=== PATIENT | female | born 1985 | race Caucasian/White ===

== ENCOUNTER 2016-09-17 01:43 | Outpatient (CLI) | payer OTHER ==
[~2016-09-17] VITALS: Ht 165.1 cm; Wt 81.8 kg
[~2016-09-17 01:43] MED LIST: BCP TD; PERCOCET 5/321 UDTAB PO; valtrex
[2016-09-17 02:19] LABS: MEAN CELL VOLUME 91 fl (80.0-100.0); MEAN CORPUSCULAR HGB CONC 35 g/dl (33.0-37.0); PLATELET COUNT 220 K/mm3 (130-400); RED BLOOD COUNT 3.52 M/mm3 (4.10-5.30); WHITE BLOOD COUNT 17.6 K/mm3 (4.8-10.8)
[2016-09-17 02:20] LABS: ADD PATHOLOGY DIFF REVIEW NO; HEMOGLOBIN 11.2 g/dl (12.5-16.0); MEAN CORPUSCULAR HEMOGLOBIN 32 pg (27.0-31.0)
[2016-09-17 02:26] LABS: BAND 7 % (0-10); BASOPHIL 1 % (0-2); EOSINOPHIL 1 % (0-4); MYELOCYTE 2 % (0-0); NEUTROPHILS 77 % (42.0-75.2); PLATELET ESTIMATE NORMAL (NORMAL); TOTAL CELLS COUNTED 100
[2016-09-17 02:27] LABS: ADJUSTED CALCIUM 9.4 mg/dL (8.4-10.2); ALBUMIN 3.2 gm/dL (3.5-5.0); BILIRUBIN,TOTAL 0.5 mg/dL (0.0-1.0); CALCIUM 8.8 mg/dL (8.4-10.2); CREATININE, serum 0.52 mg/dL (0.52-1.25); POTASSIUM 3.4 mmol/L (3.4-5.0); TOTAL PROTEIN 6.4 gm/dL (6.4-8.2)
[2016-09-17 02:39] VITALS: BP 130/83; PULSE 108; TEMP 98.3
[2016-09-17] MEDS ORDERED: SYNTHROID0.05 MG/TA PO (02:49)
[2016-09-17] MEDS ORDERED: PRENATAL (02:50)
[2016-09-17 03:20] LABS: PH 6 (5-8); SQUAMOUS EPITHELIAL 0-2 /hpf; URINE APPEARANCE Hazy; URINE BACTERIA None Seen /hpf; URINE BILIRUBIN Negative (NEGATIVE); URINE BLOOD 1+ (NEGATIVE); URINE COLOR Yellow; URINE GLUCOSE Negative (NEGATIVE); URINE KETONE Negative (NEGATIVE); URINE RBC 20-50 /hpf; URINE UROBILINOGEN Negative (NEGATIVE)
[2016-09-17 03:30] VITALS: BP 124/81; PULSE 96; TEMP 98.2
== END 2016-09-17 04:05 ==
LOC: LDRO 01:43
PROVIDERS: Student in an Organized Health Care Education/Training Program
DX: O26.892 Other specified pregnancy related conditions, second trimester (principal); R10.84 Generalized abdominal pain; Z3A.21 21 weeks gestation of pregnancy; Z87.891 Personal history of nicotine dependence

== ENCOUNTER 2016-12-27 19:40 | Outpatient (CLI) | payer OTHER ==
[~2016-12-27] VITALS: Ht 165.1 cm; Wt 97.3 kg
[~2016-12-27 19:40] MED LIST changes: +PRENATAL; +SYNTHROID0.05 MG/TA PO
[2016-12-27 19:50] VITALS: BP 147/85; PULSE 91; TEMP 98.3
[2016-12-27 20:00] VITALS: BP 142/83; PULSE 96
[2016-12-27 20:38] VITALS: BP 138/83; PULSE 93
== END 2016-12-27 20:50 | disposition home or self-care (01) ==
LOC: LDRO 19:40
DX: O62.9 Abnormality of forces of labor, unspecified (principal); Z3A.36 36 weeks gestation of pregnancy

== ENCOUNTER 2017-01-02 17:03 | Outpatient (CLI) | payer OTHER ==
[~2017-01-02] VITALS: Ht 165.1 cm; Wt 98.2 kg
[2017-01-02 17:10] VITALS: BP 144/83; PULSE 111; TEMP 98.7
[2017-01-02 17:30] VITALS: BP 144/83; PULSE 111; TEMP 98.7
[2017-01-02 17:41] LABS: MEAN CELL VOLUME 90 fl (80.0-100.0); MEAN CORPUSCULAR HGB CONC 35 g/dl (33.0-37.0); MEAN PLATELET VOLUME 11.2 fl (7.4-10.4); PLATELET COUNT 165 K/mm3 (130-400); RED BLOOD COUNT 3.35 M/mm3 (4.10-5.30); REDCELL DISTRIBUTION WIDTH-CV 14.6 % (11.5-14.5)
[2017-01-02 17:47] LABS: ADD PATHOLOGY DIFF REVIEW NO; HEMATOCRIT 30.1 % (37.0-47.0); HEMOGLOBIN 10.5 g/dl (12.5-16.0); MEAN CORPUSCULAR HEMOGLOBIN 31 pg (27.0-31.0)
[2017-01-02 17:48] LABS: ALBUMIN 3.2 gm/dL (3.5-5.0); BILIRUBIN,TOTAL 0.5 mg/dL (0.0-1.0); CALCIUM 9.4 mg/dL (8.4-10.2); CREATININE, serum 0.47 mg/dL (0.52-1.25); POTASSIUM 3.2 mmol/L (3.4-5.0); TOTAL PROTEIN 6.2 gm/dL (6.4-8.2)
[2017-01-02 17:56] LABS: BAND 1 % (0-10); EOSINOPHIL 2 % (0-4); NEUTROPHILS 77 % (42.0-75.2); TOTAL CELLS COUNTED 100
[2017-01-02 17:57] LABS: ANISOCYTOSIS 1+; HYPOCHROMIA 1+; MICROCYTOSIS 1+; POLYCHROMASIA 1+
[2017-01-02 18:00] VITALS: BP 127/77; PULSE 106
== END 2017-01-02 18:27 | disposition home or self-care (01) ==
LOC: LDRO 17:03
PROVIDERS: Obstetrics & Gynecology
DX: O16.3 Unspecified maternal hypertension, third trimester (principal); R60.0 Localized edema; Z3A.37 37 weeks gestation of pregnancy; Z87.891 Personal history of nicotine dependence

== ENCOUNTER 2017-01-05 14:17 | Outpatient (CLI) | payer OTHER ==
[~2017-01-05] VITALS: Ht 165.1 cm; Wt 98.2 kg
[2017-01-05 14:18] VITALS: BP 139/80; PULSE 112; TEMP 98.3
[2017-01-05 14:20] VITALS: BP 144/86; PULSE 113
[2017-01-05] MEDS ORDERED: VALTREX 50500 MG/TAB PO (14:22)
[2017-01-05 14:35] VITALS: BP 133/80; PULSE 100
[2017-01-05 14:50] VITALS: BP 124/62; PULSE 89
[2017-01-05 15:00] VITALS: BP 125/63; PULSE 106
== END 2017-01-05 15:15 | disposition home or self-care (01) ==
LOC: LDRO 14:17
DX: O26.893 Other specified pregnancy related conditions, third trimester (principal); R03.0 Elevated blood-pressure reading, without diagnosis of hypertension; Z3A.37 37 weeks gestation of pregnancy

== ENCOUNTER 2017-01-09 18:08 | Outpatient (CLI) | payer OTHER ==
[~2017-01-09] VITALS: Ht 165.1 cm; Wt 97.7 kg
[~2017-01-09 18:08] MED LIST changes: +VALTREX 50500 MG/TAB PO
[2017-01-09 18:45] VITALS: BP 128/81; PULSE 98
[2017-01-09 18:54] VITALS: BP 136/84; PULSE 108; TEMP 98.4
[2017-01-09] MEDS ORDERED: LEVOXYL0.075 MG PO (19:09)
[2017-01-09 19:15] VITALS: BP 134/78; PULSE 97
[2017-01-09 19:15] LABS: MEAN CELL VOLUME 90 fl (80.0-100.0); MEAN CORPUSCULAR HGB CONC 34 g/dl (33.0-37.0); MEAN PLATELET VOLUME 11.2 fl (7.4-10.4); PLATELET COUNT 181 K/mm3 (130-400); RED BLOOD COUNT 3.44 M/mm3 (4.10-5.30); REDCELL DISTRIBUTION WIDTH-CV 14.9 % (11.5-14.5); WHITE BLOOD COUNT 14.7 K/mm3 (4.8-10.8)
[2017-01-09 19:17] LABS: HEMOGLOBIN 10.6 g/dl (12.5-16.0); MEAN CORPUSCULAR HEMOGLOBIN 31 pg (27.0-31.0)
[2017-01-09 19:18] LABS: ADD PATHOLOGY DIFF REVIEW NO
[2017-01-09 19:19] LABS: PH 6 (5-8); SQUAMOUS EPITHELIAL >50 /hpf; URINE APPEARANCE Cloudy; URINE BACTERIA Rare /hpf; URINE BILIRUBIN Negative (NEGATIVE); URINE BLOOD Negative (NEGATIVE); URINE COLOR Yellow; URINE GLUCOSE Negative (NEGATIVE); URINE KETONE Trace (NEGATIVE); URINE UROBILINOGEN Negative (NEGATIVE)
[2017-01-09 19:24] LABS: ADJUSTED CALCIUM 9.6 mg/dL (8.4-10.2); ALBUMIN 3.2 gm/dL (3.5-5.0); ANISOCYTOSIS 1+; BAND 1 % (0-10); BILIRUBIN,TOTAL 0.6 mg/dL (0.0-1.0); CREATININE, serum 0.54 mg/dL (0.52-1.25); EOSINOPHIL 1 % (0-4); METAMYELOCYTE 2 % (0-0); MICROCYTOSIS 2+; NEUTROPHILS 79 % (42.0-75.2); POLYCHROMASIA 1+; POTASSIUM 3.1 mmol/L (3.4-5.0); TOTAL CELLS COUNTED 100; TOTAL PROTEIN 6.1 gm/dL (6.4-8.2)
[2017-01-09 19:48] VITALS: BP 137/80; PULSE 109
== END 2017-01-09 20:00 | disposition home or self-care (01) ==
LOC: LDRO 18:08
PROVIDERS: Obstetrics & Gynecology
DX: Z34.83 Encounter for supervision of other normal pregnancy, third trimester (principal); Z3A.38 38 weeks gestation of pregnancy

== ENCOUNTER 2017-01-16 06:47 | Inpatient (IN) | payer OTHER ==
[~2017-01-16] VITALS: Ht 162.6 cm; Wt 98.2 kg
[2017-01-16] VITALS (48 sets, daily range): BP systolic 99–177; BP diastolic 54–102; PULSE 74–125; TEMP 97.7–98
[~2017-01-16 06:47] MED LIST changes: +LEVOXYL0.075 MG PO
[2017-01-16 07:49] LABS: ADJUSTED CALCIUM 10.8 mg/dL (8.4-10.2); ALBUMIN 3.2 gm/dL (3.5-5.0); BILIRUBIN,TOTAL 0.6 mg/dL (0.0-1.0); CALCIUM 10.2 mg/dL (8.4-10.2); CREATININE, serum 0.51 mg/dL (0.52-1.25); POTASSIUM 3.1 mmol/L (3.4-5.0); TOTAL PROTEIN 6.1 gm/dL (6.4-8.2)
[2017-01-16] MEDS ORDERED: CLARITIN 1010 MG/TAB PO (07:55)
[2017-01-16] MEDS ORDERED: BENADRYL25 M2 PO (07:56)
[2017-01-16 08:10] LABS: MEAN CELL VOLUME 90 fl (80.0-100.0); MEAN CORPUSCULAR HGB CONC 35 g/dl (33.0-37.0); MEAN PLATELET VOLUME 12.1 fl (7.4-10.4); PLATELET COUNT 148 K/mm3 (130-400); RED BLOOD COUNT 3.56 M/mm3 (4.10-5.30); REDCELL DISTRIBUTION WIDTH-CV 14.9 % (11.5-14.5); WHITE BLOOD COUNT 13.5 K/mm3 (4.8-10.8)
[2017-01-16 08:15] LABS: HEMATOCRIT 31.9 % (37.0-47.0); HEMOGLOBIN 11.1 g/dl (12.5-16.0); MEAN CORPUSCULAR HEMOGLOBIN 31 pg (27.0-31.0)
[2017-01-16 08:16] LABS: ADD PATHOLOGY DIFF REVIEW NO
[2017-01-16 09:23] LABS: BAND 8 % (0-10); NEUTROPHILS 75 % (42.0-75.2); TOTAL CELLS COUNTED 100
[2017-01-16 09:24] LABS: ANISOCYTOSIS 1+; HYPOCHROMIA 1+; PLATELET ESTIMATE NORMAL (NORMAL)
[2017-01-17 00:05] VITALS: BP 140/83; PULSE 80; TEMP 97.5
[2017-01-17 05:45] VITALS: BP 112/63; PULSE 78; TEMP 97.5
[2017-01-17 07:28] LABS: MEAN CELL VOLUME 92 fl (80.0-100.0); MEAN CORPUSCULAR HGB CONC 33 g/dl (33.0-37.0); MEAN PLATELET VOLUME 11.8 fl (7.4-10.4); PLATELET COUNT 135 K/mm3 (130-400); RED BLOOD COUNT 3.26 M/mm3 (4.10-5.30); REDCELL DISTRIBUTION WIDTH-CV 15.1 % (11.5-14.5); WHITE BLOOD COUNT 12.4 K/mm3 (4.8-10.8)
[2017-01-17 07:45] LABS: HEMATOCRIT 29.9 % (37.0-47.0); MEAN CORPUSCULAR HEMOGLOBIN 31 pg (27.0-31.0)
[2017-01-17 07:49] LABS: ADD PATHOLOGY DIFF REVIEW NO
[2017-01-17 07:50] LABS: ADJUSTED CALCIUM 10.1 mg/dL (8.4-10.2); ALBUMIN 2.6 gm/dL (3.5-5.0); BILIRUBIN,TOTAL 0.5 mg/dL (0.0-1.0); CREATININE, serum 0.56 mg/dL (0.52-1.25); POTASSIUM 3.5 mmol/L (3.4-5.0); TOTAL PROTEIN 5.4 gm/dL (6.4-8.2)
[2017-01-17 07:52] VITALS: BP 142/88; PULSE 88; TEMP 97.8
[2017-01-17] MEDS ORDERED: IBU800 M1 PO (08:49)
[2017-01-17] MEDS ORDERED: PERCOCET 325 MG1 TA2 PO (08:49)
[2017-01-17 09:15] LABS: BAND 14 % (0-10); EOSINOPHIL 2 % (0-4); NEUTROPHILS 62 % (42.0-75.2); TOTAL CELLS COUNTED 100
[2017-01-17 09:16] LABS: ANISOCYTOSIS 1+; HYPOCHROMIA 1+; PLATELET ESTIMATE NORMAL (NORMAL)
[2017-01-17 17:17] VITALS: BP 122/76; PULSE 92; TEMP 97.6
[2017-01-17 20:15] VITALS: BP 134/86; PULSE 86; TEMP 97.9
[2017-01-18 08:00] VITALS: BP 133/84; PULSE 90; TEMP 97.8
== END 2017-01-18 13:55 | disposition home or self-care (01) | DRG 775 ==
LOC: OB 06:47 → LDR 06:47 → OB 20:10
PROVIDERS: Obstetrics & Gynecology
PROC: 10E0XZZ Delivery of Products of Conception, External Approach (ICD-10-PCS; principal; 2017-01-16)
PROC: 3E033VJ Introduction of Other Hormone into Peripheral Vein, Percutaneous Approach (ICD-10-PCS; 2017-01-16)
DX: O13.3 Gestational [pregnancy-induced] hypertension without significant proteinuria, third trimester (principal); O36.0130 Maternal care for anti-D [Rh] antibodies, third trimester, not applicable or unspecified; O99.283 Endocrine, nutritional and metabolic diseases complicating pregnancy, third trimester; E03.9 Hypothyroidism, unspecified; Z3A.39 39 weeks gestation of pregnancy; Z37.0 Single live birth
CPT/HCPCS: J2590; J2795; J7120

== ENCOUNTER 2021-03-11 14:00 | Emergency (ER) | payer OTHER ==
[~2021-03-11] VITALS: Ht 162.6 cm; Wt 95.9 kg
[~2021-03-11 14:00] MED LIST changes: +BENADRYL25 M2 PO; +CLARITIN 1010 MG/TAB PO; +IBU800 M1 PO; +PERCOCET 325 MG1 TA2 PO
[2021-03-11 16:04] VITALS: BP 136/64; PULSE 82; TEMP 98.1
== END 2021-03-11 16:05 | disposition home or self-care (01) ==
LOC: COL.ER 14:00
DX: R51.9 Headache, unspecified (principal); F17.200 Nicotine dependence, unspecified, uncomplicated; Z86.69 Personal history of other diseases of the nervous system and sense organs; Z79.891 Long term (current) use of opiate analgesic
CPT/HCPCS: J0780; J1100; J1200; J1885

== ENCOUNTER 2021-03-12 16:58 | Emergency (ER) | payer OTHER ==
[~2021-03-12] VITALS: Ht 162.6 cm; Wt 95.9 kg
[2021-03-12 17:31] VITALS: TEMP 98.1
[2021-03-12 19:32] VITALS: BP 145/80; PULSE 87
== END 2021-03-12 19:32 | disposition home or self-care (01) ==
LOC: COL.ER 16:58
DX: G43.909 Migraine, unspecified, not intractable, without status migrainosus (principal); F17.210 Nicotine dependence, cigarettes, uncomplicated; Z20.822 Contact with and (suspected) exposure to COVID-19
CPT/HCPCS: J1100; J1200; J1885; J7030

== ENCOUNTER 2021-03-14 08:31 | Emergency (ER) | payer OTHER ==
[~2021-03-14] VITALS: Ht 162.6 cm; Wt 95.9 kg
[2021-03-14 12:29] LABS: BASO % 0.3 % (0.0-2.0); EOS # 0.2 (0.0-0.7); EOS % 1.2 % (0-4.0); GRAN # 8.2 (1.4-6.5); GRAN % 67.8 % (42.2-75.2); HEMATOCRIT 43.1 % (37.0-47.0); HEMOGLOBIN 14.4 g/dl (12.5-16.0); LYMPH # 2.9 (1.2-3.4); MEAN CELL VOLUME 87 fl (80.0-100.0); MEAN CORPUSCULAR HEMOGLOBIN 29 pg (27.0-31.0); MEAN CORPUSCULAR HGB CONC 33 g/dl (33.0-37.0); MEAN PLATELET VOLUME 11.3 fl (7.4-10.4); MONO # 0.7 (0.1-0.6); PLATELET COUNT 261 K/mm3 (130-400); RED BLOOD COUNT 4.93 M/mm3 (4.10-5.30); REDCELL DISTRIBUTION WIDTH-CV 14.3 % (11.5-14.5)
[2021-03-14 12:38] LABS: BILIRUBIN,TOTAL 0.4 mg/dL (0.0-1.0); C-REACTIVE PROTEIN 0.6 mg/dL (0.0-0.9); CALCIUM 8.7 mg/dL (8.4-10.2); CREATININE, serum 0.78 (0.52-1.25); POTASSIUM 3.6 mmol/L (3.4-5.0); TOTAL PROTEIN 7.1 gm/dL (6.4-8.2)
[2021-03-14] MEDS ORDERED: NORCO 325 MG-51 TAB PO (13:36)
[2021-03-14 13:45] VITALS: BP 148/74; PULSE 76; TEMP 98.3
== END 2021-03-14 13:45 | disposition home or self-care (01) ==
LOC: COL.ER 08:31
PROVIDERS: Student in an Organized Health Care Education/Training Program
DX: G43.909 Migraine, unspecified, not intractable, without status migrainosus (principal); D72.829 Elevated white blood cell count, unspecified; I10 Essential (primary) hypertension; E03.9 Hypothyroidism, unspecified; Z79.891 Long term (current) use of opiate analgesic; Z79.890 Hormone replacement therapy
CPT/HCPCS: J1885; J2550

== ENCOUNTER 2021-03-26 10:56 | Emergency (ER) | payer OTHER, MEDICAID ==
[~2021-03-26] VITALS: Ht 162.6 cm; Wt 90.9 kg
[~2021-03-26 10:56] MED LIST changes: +NORCO 325 MG-51 TAB PO
[2021-03-26 11:06] VITALS: TEMP 98.4
[2021-03-26] MEDS ORDERED: HCTZ 25MG TAB25 MG PO (11:10)
[2021-03-26] MEDS ORDERED: PEPCID 20MG TAB20 MG (11:11)
[2021-03-26] MEDS ORDERED: PRIL40 PO (11:11)
[2021-03-26] MEDS ORDERED: ROBAXIN 50500 MG/TAB PO (11:11)
[2021-03-26 12:22] LABS: STREP SCREEN NEGATIVE
[2021-03-26] MEDS ORDERED: PEN-VEE K500 MG PO (12:53)
[2021-03-26 13:06] VITALS: BP 110/78; PULSE 90
== END 2021-03-26 13:06 | disposition home or self-care (01) ==
LOC: COL.ER 10:56
PROVIDERS: Student in an Organized Health Care Education/Training Program
DX: R51.9 Headache, unspecified (principal); M54.2 Cervicalgia; K08.89 Other specified disorders of teeth and supporting structures; F17.200 Nicotine dependence, unspecified, uncomplicated; Z86.69 Personal history of other diseases of the nervous system and sense organs

== ENCOUNTER 2021-04-04 16:52 | Emergency (ER) | payer OTHER, MEDICAID ==
[~2021-04-04] VITALS: Ht 162.6 cm; Wt 92.7 kg
[~2021-04-04 16:52] MED LIST changes: +HCTZ 25MG TAB25 MG PO; +PEN-VEE K500 MG PO; +PEPCID 20MG TAB20 MG; +PRIL40 PO; +ROBAXIN 50500 MG/TAB PO
[2021-04-04 21:49] VITALS: BP 136/84; PULSE 86; TEMP 98.7
== END 2021-04-04 21:49 | disposition home or self-care (01) ==
LOC: COL.ER 16:52
DX: G97.1 Other reaction to spinal and lumbar puncture (principal); F17.210 Nicotine dependence, cigarettes, uncomplicated; Z20.822 Contact with and (suspected) exposure to COVID-19
CPT/HCPCS: J2405; J7120